=== PATIENT | female | born 1960 | race Caucasian/White ===

== ENCOUNTER 2018-10-08 15:08 | Emergency (ER) | payer OTHER ==
[2018-10-08] MEDS: OXYCODONE/ACETAMINOPHEN (5/325) TAB PO (18:56)
== END 2018-10-08 19:40 | disposition home or self-care (01) ==
LOC: FTE 19:40
DX: B02.29 Other postherpetic nervous system involvement (principal); I10 Essential (primary) hypertension; Z79.82 Long term (current) use of aspirin
CPT/HCPCS: 99283; Z7610